=== PATIENT | female | born 1970 | race Caucasian/White ===

== ENCOUNTER 2025-04-21 06:53 | Day surgery (SDC) | payer OTHER ==
[~2025-04-21] VITALS: Ht 162.6 cm; Wt 68.0 kg
[2025-04-21] VITALS (11 sets, daily range): BP systolic 98–125; BP diastolic 59–82; PULSE 68–91; RESP 14–16; TEMP 97.1–98.1
[2025-04-21] MEDS ORDERED: SEMAGLUTIDE 14 MG SQ (07:29)
[2025-04-21] MEDS ORDERED: ESTR1PAT88 TD (07:29)
[2025-04-21] MEDS ORDERED: TRAM100C3 PO (07:29)
[2025-04-21] MEDS ORDERED: L.AC1CAP6 PO (07:29)
[2025-04-21] MEDS ORDERED: LEVO50CA5 PO (07:29)
[2025-04-21] MEDS ORDERED: [UNRECOGNIZED DRUG - CODE] PO (07:29)
[2025-04-21] MEDS ORDERED: BUPR-74 PO (07:29)
[2025-04-21] MEDS ORDERED: ROSUVASTATIN 20MG PO (07:29)
[2025-04-21] MEDS: 0.9%NACL 1000ML 1,000 ML IV ONE (07:38)
== END 2025-04-21 09:15 | disposition home or self-care (01) ==
LOC: ENDO 06:53 → DAH 06:53 → ENDO 09:15
PROVIDERS: ATTEND Internal Medicine
DX: Z12.11 Encounter for screening for malignant neoplasm of colon (principal); D12.4 Benign neoplasm of descending colon; D12.3 Benign neoplasm of transverse colon; K57.30 Diverticulosis of large intestine without perforation or abscess without bleeding; E78.5 Hyperlipidemia, unspecified; F32.A Depression, unspecified; Z98.890 Other specified postprocedural states
CPT/HCPCS: 45380; 45385; 81025; J7030; J2704; J2405; A4620; A4215; J3490